=== PATIENT | female | born 1970 | race Caucasian/White ===

== ENCOUNTER → 2016-11-10 | Outpatient (CLI) | payer BC ==
[~2016-11-10] MED LIST: COLACE 100100 MG/CAP PO; HYGROTON 2525 MG/TAB PO; NAPROSYN500 MG PO; NORCO 325 MG-51 TAB PO; ZOFRAN 4MG T4 MG/TAB PO
== END ==
LOC: MC.RAD 16:46
DX: Z12.31 Encounter for screening mammogram for malignant neoplasm of breast (principal)

== ENCOUNTER → 2017-12-15 | Outpatient (CLI) | payer BC, OTHER | LOC: MC.RAD 07:00 | DX: Z12.31 Encounter for screening mammogram for malignant neoplasm of breast (principal) ==

== ENCOUNTER → 2018-12-14 | Outpatient (CLI) | payer BC, OTHER | LOC: MC.RAD 07:15 | DX: Z12.31 Encounter for screening mammogram for malignant neoplasm of breast (principal) ==

== ENCOUNTER → 2019-12-16 | Outpatient (CLI) | payer BC, OTHER | LOC: MC.RAD 07:00 | DX: Z12.31 Encounter for screening mammogram for malignant neoplasm of breast (principal) ==

== ENCOUNTER 2020-08-21 07:32 | Day surgery (SDC) | payer BC, OTHER ==
[~2020-08-21] VITALS: Ht 165.1 cm; Wt 74.3 kg
[2020-08-21 08:17] VITALS: BP 108/76; PULSE 73; TEMP 97.5
[2020-08-21] MEDS ORDERED: PROBIOTIC FORMU1 CAP PO (08:38)
[2020-08-21] MEDS ORDERED: SINGULAIR 110 MG/TAB PO (08:38)
[2020-08-21] MEDS ORDERED: FLONASEALLERGY NS (08:39)
[2020-08-21] MEDS ORDERED: ZYRTEC5 MG PO (08:39)
--- NOTE | 2020-08-21 08:41 | NUR ---
TO [facility] 7 AT 0752- CALL LIVHT IN REACH AT BEDSIDE.
[2020-08-21 09:45] VITALS: BP 93/67; PULSE 63; TEMP 97
--- NOTE | 2020-08-21 09:45 | NUR ---
Patient arrives to [facility] [facility] via cart, accompanied by [facility] RN Tiana Keen. She is alert and oriented. She ambulates to the chair in her room with steady gait. PIV to TKO. Monitoring is applied -VSS and WNL on room air. Offered and receives sprite and a muffin. Denies pain or needs. Dr. Escalante comes to the bedside.
[2020-08-21 10:00] VITALS: BP 110/80; PULSE 55
--- NOTE | 2020-08-21 10:00 | NUR ---
Patient is resting comfortably. Denies needs. VSS. Tolerating PO well.
[2020-08-21 10:15] VITALS: BP 113/78; PULSE 57
--- NOTE | 2020-08-21 10:15 | NUR ---
Patient has met discharge criteria. Discharge instructions are discussed. She denies any questions and verbalizes understanding. PIV is removed with catheter intact and hemostasis achieved. She is changing to her clothing independently.
--- NOTE | 2020-08-21 10:30 | NUR ---
Patient is escorted to the exit via wheelchair by staff. She is discharged to home with ride in private vehicle at 1030.
== END 2020-08-21 10:30 | disposition home or self-care (01) ==
LOC: SDCO 07:32
DX: Z12.11 Encounter for screening for malignant neoplasm of colon (principal); D12.5 Benign neoplasm of sigmoid colon; I10 Essential (primary) hypertension; J45.990 Exercise induced bronchospasm; Z79.899 Other long term (current) drug therapy; Z87.891 Personal history of nicotine dependence
CPT/HCPCS: J2704; J7120

== ENCOUNTER → 2020-12-17 | Outpatient (CLI) | payer BC, OTHER ==
[~2020-12-17] MED LIST changes: +FLONASEALLERGY NS; +PROBIOTIC FORMU1 CAP PO; +SINGULAIR 110 MG/TAB PO; +ZYRTEC5 MG PO
== END ==
LOC: MC.RAD 08:36
DX: Z12.31 Encounter for screening mammogram for malignant neoplasm of breast (principal)

== ENCOUNTER → 2021-12-17 | Outpatient (CLI) | payer BC, OTHER | LOC: MC.RAD 09:30 | DX: Z12.31 Encounter for screening mammogram for malignant neoplasm of breast (principal) ==

== ENCOUNTER 2023-07-05 17:34 | Emergency (ER) | payer BC, OTHER ==
[~2023-07-05] VITALS: Ht 165.1 cm; Wt 80.0 kg
[2023-07-05 17:37] VITALS: TEMP 98.7
[2023-07-05 20:12] VITALS: BP 121/81; PULSE 74
== END 2023-07-05 20:12 | disposition home or self-care (01) ==
LOC: COL.ER 17:34
DX: R68.84 Jaw pain (principal); M79.603 Pain in arm, unspecified

== ENCOUNTER → 2023-12-21 | Outpatient (CLI) | payer BC, OTHER | LOC: MC.RAD 07:14 | DX: Z12.31 Encounter for screening mammogram for malignant neoplasm of breast (principal) ==